=== PATIENT | female | born 1965 | race Caucasian/White ===

== ENCOUNTER 2017-08-17 08:56 | Emergency (ER) | payer OTHER ==
[~2017-08-17] VITALS: Ht 160 cm; Wt 75.7 kg
[2017-08-17] MEDS ORDERED: [UNRECOGNIZED DRUG - REMARK] (09:17)
[2017-08-17] MEDS ORDERED: [UNRECOGNIZED DRUG - REMARK] (09:17)
[2017-08-17] MEDS ORDERED: [UNRECOGNIZED DRUG - REMARK] (09:17)
[2017-08-17] MEDS ORDERED: [UNRECOGNIZED DRUG - REMARK] (09:17)
[2017-08-17] MEDS ORDERED: TETRACAINE HCL 0.5% OPHT DROP 2 ML BOTTLE ONE (09:26)
[2017-08-17] MEDS ORDERED: FLUORESCEIN SODIUM 1 MG STRIP ONE (09:26)
[2017-08-17] MEDS: TETRACAINE HCL 0.5% OPHT DROP 2 ML BOTTLE OP ONE (09:28)
[2017-08-17] MEDS: FLUORESCEIN SODIUM 1 MG STRIP OP ONE (09:29)
[2017-08-17] MEDS ORDERED: CYCLOPENTOLATE 1% OPHT DROP 2 ML BOTTLE ONE (09:53)
[2017-08-17] MEDS ORDERED: HYDROCODONE/APAP 5-325MG TABLET ONE (09:54)
[2017-08-17] MEDS: CYCLOPENTOLATE 1% OPHT DROP 2 ML BOTTLE RIGHTEYE ONE (09:57)
[2017-08-17] MEDS: HYDROCODONE/APAP 5-325MG TABLET PO ONE (09:57)
--- NOTE | 2017-08-17 09:57 | NUR ---
Patient discharged to home in stable conditon. Written and verbal after care instructions given. Patient verbalizes understanding of instructions.
== END 2017-08-17 10:00 | disposition home or self-care (01) ==
LOC: ER 08:56
DX: S05.01XA Injury of conjunctiva and corneal abrasion without foreign body, right eye, initial encounter (principal); E78.5 Hyperlipidemia, unspecified; E03.9 Hypothyroidism, unspecified; E11.9 Type 2 diabetes mellitus without complications; I10 Essential (primary) hypertension; Z79.4 Long term (current) use of insulin; Z88.0 Allergy status to penicillin; W22.8XXA Striking against or struck by other objects, initial encounter; Y93.89 Activity, other specified; Y92.89 Other specified places as the place of occurrence of the external cause; Y99.8 Other external cause status
CPT/HCPCS: A4663

== ENCOUNTER 2020-07-25 16:34 | Emergency (ER) | payer OTHER ==
[~2020-07-25] VITALS: Ht 165.1 cm; Wt 72.6 kg
[~2020-07-25 16:34] MED LIST: [UNRECOGNIZED DRUG - REMARK]; [UNRECOGNIZED DRUG - REMARK]; [UNRECOGNIZED DRUG - REMARK]; [UNRECOGNIZED DRUG - REMARK]
--- NOTE | 2020-07-25 17:00 | NUR ---
Dr Connolly at the bedside for MSE.
[2020-07-25] MEDS ORDERED: KETOROLAC TROMETHAMINE 60 MG INJ IM ONE ×2 (17:14→17:15)
--- NOTE | 2020-07-25 17:57 | NUR ---
Patient discharged to home in stable condition. Written and verbal after care instructions given. Patient verbalizes understanding of instructions. Stressed follow up or return to ER for worsening s/s.
[2020-07-25 17:58] VITALS: BP 140/67
== END 2020-07-25 17:59 | disposition home or self-care (01) ==
LOC: ER 16:35
DX: R51.9 Headache, unspecified (principal); R06.02 Shortness of breath; I11.9 Hypertensive heart disease without heart failure; E78.5 Hyperlipidemia, unspecified; E03.9 Hypothyroidism, unspecified; E11.9 Type 2 diabetes mellitus without complications; Z79.4 Long term (current) use of insulin; Z79.899 Other long term (current) drug therapy
CPT/HCPCS: 70450; 71045; 96372; 99284; J1885; A4663

== ENCOUNTER 2025-06-13 10:37 | Emergency (ER) | payer OTHER ==
[~2025-06-13] VITALS: Ht 160 cm; Wt 68.0 kg
[2025-06-13 10:42] VITALS: BP 154/65
[2025-06-13] MEDS ORDERED: NEOM10DR11 LEFT EAR (11:03)
[2025-06-13] MEDS ORDERED: CEFD300C3 PO (11:03)
[2025-06-13 11:10] VITALS: BP 131/61; O2SAT 97
== END 2025-06-13 11:10 | disposition home or self-care (01) ==
LOC: ER 10:37
DX: H66.92 Otitis media, unspecified, left ear (principal); I11.9 Hypertensive heart disease without heart failure; E11.9 Type 2 diabetes mellitus without complications; E78.5 Hyperlipidemia, unspecified; E03.9 Hypothyroidism, unspecified; Z88.0 Allergy status to penicillin
CPT/HCPCS: A4606; A4663